=== PATIENT | female | born 1990 | race Caucasian/White ===

== ENCOUNTER 2019-04-30 13:27 | Outpatient (CLI) | payer OTHER | END 2019-04-30 13:28 | disposition home or self-care (01) | LOC: LAB.S 13:27 | PROVIDERS: ATTEND Nurse Practitioner Family | DX: Z00.00 Encounter for general adult medical examination without abnormal findings (principal); E55.9 Vitamin D deficiency, unspecified; E78.5 Hyperlipidemia, unspecified ==

== ENCOUNTER 2019-05-06 | Outpatient (CLI) | payer OTHER | END 2019-05-06 08:25 | disposition home or self-care (01) ==